=== PATIENT | male | born 1955 ===

== ENCOUNTER 2018-03-07 08:27 | Day surgery (SDC) | payer OTHER ==
[2018-03-07 10:17] VITALS: BMI 23.9
[2018-03-07] MEDS ORDERED: Sodium Chloride 0.9% 1,000 ML IV ONE (10:23)
[2018-03-07] MEDS ORDERED: Propofol 10 mg/ml Inj (20 ML) ONE (11:17)
[2018-03-07 12:01] VITALS: RESP 15; TEMP 97
[2018-03-07 12:14] VITALS: PULSE 73; O2SAT 99
[2018-03-07 12:23] VITALS: BP 100/59
== END 2018-03-07 14:08 | disposition home or self-care (01) ==
LOC: H.ENDO 08:27
PROVIDERS: ATTEND Internal Medicine Gastroenterology
DX: Z12.11 Encounter for screening for malignant neoplasm of colon (principal); I25.10 Atherosclerotic heart disease of native coronary artery without angina pectoris; K64.8 Other hemorrhoids; K21.0 Gastro-esophageal reflux disease with esophagitis; K44.9 Diaphragmatic hernia without obstruction or gangrene; K31.89 Other diseases of stomach and duodenum; K30 Functional dyspepsia; K29.50 Unspecified chronic gastritis without bleeding
CPT/HCPCS: 43239; 45378; 82948; 88305; J2001; J2704; J7030